=== PATIENT | male | born 1980 | race Caucasian/White ===

== ENCOUNTER 2018-11-09 16:37 | Emergency (ER) | payer SELFPAY ==
--- NOTE | 2018-11-09 17:41 | PDOC ---
Rapid Medical Evaluation Medical Evaluation: 11/09/18 17:38 Pt c/o: pain to midsuprapubic area x 2 days, pain causes him to urinate , no hematuria, no other complaints, no etoh Pt on brief exam: mid suprapubic pain Patient ordered for: ua, ucx Pt to proceed to the ED Discharge Disposition - Diagnosis Suprapubic abdominal pain - Referrals - Patient Instructions - Post Discharge Activity
[2018-11-09 17:43] VITALS: BP 131/82; PULSE 67; TEMP 98.1; BMI 26.6
[2018-11-09 18:20] LABS: URINE APPEARANCE CLEAR; URINE BILIRUBIN NEGATIVE (<2.0 mg/dL); URINE COLOR COLORLESS; URINE GLUCOSE (UA) NEGATIVE (NEGATIVE); URINE KETONE NEGATIVE (NEGATIVE); URINE LEUK ESTERASE NEGATIVE (NEGATIVE); URINE NITRITE NEGATIVE (NEGATIVE); URINE PROTEIN NEGATIVE (NEGATIVE); URINE UROBILINOGEN NEGATIVE mg/dL (0.2-1.0)
[2018-11-09] MEDS ORDERED: SODIUM CHLORIDE 0.9% 500 ML INFUS.BAG IV ONE (19:34)
[2018-11-09] MEDS ORDERED: ACETAMINOPHEN 1000 MG/100 ML VIAL (NON FORMULARY) IVPB ONE (19:35)
--- NOTE | 2018-11-09 19:38 | PDOC ---
Attending Attestation - HPI HPI: 11/09/18 20:31 The patient is a 38-year-old male with no reported past medical history presents to the emergency department with abdominal pain. The patient presents with 1 day and half of suprapubic pain associated with radiating pain to the lower back and testicles since earlier today. The patient reports since the presentation, hes been having associated symptoms of urinary frequency. The patient reports his last intercourse was without a condom. Denies hx of DM, kidney stones, FH of kidney stones, recent heavy lifting, recent surgery, dysuria, hematuria, taking medication for the pain, hx of constipation. Denies penile discharge or bleeding. Denies fever, chills, diarrhea, constipation, leg pain. Denies prior similar pain. Allergies NKDA Social history: The patient reports he is monogamous with his partner. Surgical history: None reported PCP: None reported. - Physicial Exam PE: 11/09/18 20:41 GENERAL: Awake, alert, and fully oriented, in no acute distress HEAD: No signs of trauma EYES: PERRLA, EOMI, sclera anicteric, conjunctiva clear ENT: Auricles normal inspection, hearing grossly normal, nares patent, oropharynx clear without exudates. Moist mucosa NECK: Normal ROM, supple, no lymphadenopathy, JVD, or masses LUNGS: Breath sounds equal, clear to auscultation bilaterally. No wheezes, and no crackles HEART: Regular rate and rhythm, normal S1 and S2, no murmurs, rubs or gallops ABDOMEN: +suprapubic tenderness. No flank pain. No inguinal hernia. Soft, no rebound. No masses exam: L. testicular pain, no rashes. Cremasteric reflex equal bilaterally. EXTREMITIES: Normal range of motion, no edema. No clubbing or cyanosis. No cords, erythema, or tenderness NEUROLOGICAL: Cranial nerves II through XII grossly intact. Normal speech, normal gait SKIN: No rashes or shingles. Warm, Dry, normal turgor, no rashes or lesions noted. - Medical Decision Making 11/09/18 19:41 Documentation prepared by Jeanine Burton, acting as medical office representative for Haylie Bauer MD. <Jeanine Burton - Last Filed: 11/09/18 20:41> - Resident Resident Name: Aurora Akers - ED Attending Attestation I have performed the following: I have examined & evaluated the patient, The case was reviewed & discussed with the resident, I agree w/resident's findings & plan - Medical Decision Making 11/09/18 20:18 Pt comes with a day of dysuria and urinary frequency that is radiating up the left flank.Left testcile pain, but nothing evident on exam of testicle. No flank pain with palpation or percussion. Pt has no fever and no chills. He had a sexual encounter with no condoms 3 days ago. States that he has only 1 partner. Pt has no discharge and he has no inguinal hernia defect. No rashes in the perineum or on the abd or trunk. 11/09/18 20:21 CBC normal UA normal No blood or mucus or WBC or bacteria in the urine. 11/09/18 20:53 chem normal GC/chlamydia swab is pending 11/09/18 21:09 Pt has epididymitis on the left; he will be treated with zithromax 1g as well as ceftriaxone 250mgIM <Haylie Bauer - Last Filed: 11/09/18 21:10>
--- NOTE | 2018-11-09 19:41 | PDOC ---
History of Present Illness - General Chief Complaint: Pain Stated Complaint: ABD PAIN Time Seen by Provider: 11/09/18 17:38 History Source: Patient Exam Limitations: No Limitations - History of Present Illness Initial Comments: 11/09/18 19:36 [id number] without PMH who has no PCP and has been estranged from the medical system , who p/w about 1.5 days of suprapubic pain radiating diffusely to lower abdomen , lower back, and to his testicles (equally on both sides). He denies any f/c/n/ v/d/c, penile lesions or discharge, testicular swelling, scrotal skin changes, other skin changes/rash, black/bloody stool, burning on urination, hematuria, midline back pain, leg pain, or other symptoms. Did not try taking any medication at home. Past History - Past Medical History Allergies/Adverse Reactions: Allergies Allergy/AdvReac Type Severity Reaction Status Date / Time No Known Allergies Allergy Verified 11/09/18 17:40 Home Medications: Ambulatory Orders Doxycycline Hyclate 100 mg PO BID #19 tablet 11/09/18 COPD: No - Suicide/Smoking/Psychosocial Hx Smoking History: Never smoked Hx Alcohol Use: No Drug/Substance Use Hx: No Review of Systems - Review of Systems Able to Perform ROS?: Yes Comments:: GEN: no fever, chills, malaise, generalized weakness, or weight change HEENT: no ear pain, sore throat, vision change, or eye pain CV: no chest pain, palpitations, lightheadedness, syncope, or edema RESP: no cough, wheezing, or SOB GI: lower abdominal pain, no nausea, vomiting, diarrhea, constipation, or white/ black/bloody stool : urinary frequency, testicular pain, no dysuria, hematuria, incontinence, retention, bleeding, or discharge MSK: low back pain, otherwise no additional neck/back pain, muscle weakness/pain , or joint swelling/pain NEURO: no headache, seizure, vertigo, numbness, tingling, or focal weakness PSYCH: no substance use, no behavior change SKIN: no jaundice, no rash ROS otherwise negative except as noted in HPI *Physical Exam - Vital Signs Last Vital Signs Temp Pulse Resp BP Pulse Ox 98.1 F 67 18 131/82 99 11/09/18 17:40 11/09/18 17:40 11/09/18 17:40 11/09/18 17:40 11/09/18 17:40 - Physical Exam Comments: 11/09/18 19:40 GENERAL: well-appearing, A/Ox4, no distress, answers questions appropriately, pleasant and German and B[place]ian speaking HEENT: PERRLA, EOMI, moist mucous membranes NECK/BACK: no midline ttp, no spinal stepoff or deformity, no hematoma, full ROM , neck supple CARDIOVASCULAR: regular rate/rhythm, normal S1S2, no MGR, strong peripheral pulses, capillary refill <2 seconds, extremities wwp, no edema LUNGS/RESPIRATORY: no respiratory distress, CTAB GI/ABDOMEN: symmetric [id number], normoactive BS, soft, mild suprapubic ttp, no midline pulsatile masses : no CVA tenderness EXTREMITIES: no muscle atrophy, no acute deformity SKIN: warm and dry, no pallor, no jaundice, no rash, no bruising, no skin breakdown, no cuts, no lesions NEUROLOGICAL: GCS 15, CN II-XII grossly intact, 5/5 strength proximally and distally, no facial droop Moderate Sedation - Procedure Monitoring Vital Signs: Procedure Monitoring Vital Signs Temperature 98.1 F 11/09/18 17:40 Pulse Rate 67 11/09/18 17:40 Respiratory Rate 18 11/09/18 17:40 Blood Pressure 131/82 11/09/18 17:40 O2 Sat by Pulse Oximetry (%) 99 11/09/18 17:40 ED Treatment Course - LABORATORY CBC & Chemistry Diagram: 11/09/18 19:54 11/09/18 19:54 - ADDITIONAL ORDERS Additional order review: Laboratory Results 11/09/18 18:00 Urine Color Colorless Urine Appearance Clear Urine pH 7.0 Ur Specific [place] 1.006 L Urine Protein Negative Urine Glucose (UA) Negative Urine Ketones Negative Urine Blood Negative Urine Nitrite Negative Urine Bilirubin Negative Urine Urobilinogen Negative Ur Leukocyte Esterase Negative - RADIOLOGY Radiology Studies Ordered: Category Date Time Status KIDNEY / RENAL US [US] Stat Ultrasound 11/09/18 19:34 Ordered SCROTUM AND CONTENTS US [US] Stat Ultrasound 11/09/18 19:34 Ordered Medical Decision Making - Medical Decision Making 11/09/18 19:41 Adult male Pt p/w suprapubic abdominal pain. VS: Exam: As noted in Physical Exam section. DDX IBNLT: hernia, testicular torsion, epididymitis, orchitis, urethritis, soft tissue or scrotal abscess (e.g. 2/2 folliculitis), cellulitis, Fourniers gangrene, UTI/pyelonephritis, renal colic, malignancy, cholecystitis, pancreatitis, gastritis, PUD, appendicitis, diverticulitis wwo abscess or perforation, colitis, SBO, bowel ischemia, bowel perforation, constipation, musculoskeletal, etc. W/U ordered: CBCD CMP Mg Phos Coags UA UCx T&S GC/Chlam/trich NAAT (urethral swab) GC culture, US scrotum and scrotal contents TX ordered: IVF, Ofirmev If UA has WBC and RBC but there is high clinical suspicion for appendicitis, get imaging anyway. Appendicitis can irritate the ureter(s) and cause elevated WBC and RBC in UA. Unlikely hernia as Pt has no inguinal hernia on palpation with cough, no outwardly palpable hernia. Unlikely testicular torsion as Pt has no high-riding testicle, no tenderness, no testicular/scrotal swelling. Unlikely epididymitis or orchitis as Pt has no testicular or epididymis tenderness. Unlikely urethritis as Pt denies penile burning on urination, states little concern for STI, no hx reported. Unlikely external abscess as there is no palpable or tender soft tissue mass on exam. Unlikely cellulitis as Pts skin exam is w/o erythema or warmth. Unlikely Fourniers gangrene as there are no skin color changes, Pt reports no h /o immunocompromised. Unlikely UTI/pyelonephritis as Pt has no dysuria, strange colors/smells, no h/o recurrent UTI. Unlikely renal stone as Pt notes no clinical hematuria, has no CVA tenderness. Unlikely malignancy as Pt has no palpable mass, no reported recent B symptoms. Unlikely cholecystitis as no postprandial worsening. Unlikely pancreatitis as Pt denies EtOH use, h/o gallstones, no known hypercalcemia. Unlikely gastritis as Pt denies h/o significant GERD, no overuse of EtOH. Unlikely PUD as Pt does not report relief of pain ~2 hours postprandially or with antacids. Unlikely appendicitis as Pt has no fever, RLQ or umbilical abdominal pain, or anorexia. Unlikely diverticulitis as Pt has no known h/o diverticulosis/diverticulitis. Unlikely colitis as clinically Pts abdomen is not distended/no ascites, no fever, other VS wnl. Unlikely SBO as Pt has been passing stool and gas normally per their baseline. Unlikely mesenteric ischemia as Pt has no known A-fib or coagulopathy, no pain out of proportion. Unlikely bowel perforation as Pt does not appear to have acute abdomen, no peritoneal signs. Labs: Reassessment: Repeat VS: ADMIT The Pts symptoms persist despite ED treatments. The Pt is unsafe for discharge at this time. They require further hospital observation, workup, and treatment. Microblog sent to [facility] for admission. Blank Decision to Admit order is placed per ED protocol. Spoke with admitting team u.s. representative, in agreement Pt to be admitted. Decision to Admit order corrected with admitting team covering attendings name. Decision to Admit order placed to admitting team covering attending. DISCHARGE This patient has gotten significant relief of symptoms while in the ED. On last reassessment, vitals are wnl, pain is reasonably controlled, and exam is benign. Workup is not concerning for emergency-level pathology at this time. This patient is appropriate for discharge with close outpatient follow up. They are comfortable with this plan and will follow up with their primary care provider in 1-3 days. Specific return precautions are discussed and they will come back to the ER if necessary. *DC/Admit/Observation/Transfer Diagnosis at time of Disposition: Epididymitis - Discharge Dispostion Disposition: HOME Condition at time of disposition: Stable Decision to Admit order: No - Prescriptions Prescriptions: Doxycycline Hyclate 100 mg PO BID #19 tablet - Referrals Referrals: [facility] [place] [Provider Group] - Patient Instructions Printed Discharge Instructions: DI for Epididymitis Additional Instructions: You were seen in the ER for lower abdominal pain/groin pain. We did an exam, laboratory work on your blood and urine, sent fluid cultures, and did an ultrasound, and we found inflammation of the vessels next to the left testicle which we believe is due to an infection. The fluid cultures take a few days to result, so please call back for your results at that time (you should receive a call anyway if there are any abnormal findings). Your pain improved with the medications we gave you here in the ER. After our assessment, we believe you are not having a medical emergency and you are safe to go home. 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 Finish the whole course of antibiotic as directed, whether or not you feel better. Do not have sexual intercourse for two weeks after your symptoms disappear. Your sexual partner needs to have testing for sexually transmitted infection too. Please take [id number] pain relievers like naproxen (aleve) or ibuprofen (motrin) or tylenol. Follow up with your primary care provider(s) in the next 1-3 days. Call their clinic [facility], tell them you were seen in the ER, and tell them you need an appointment. Please come back to the ER at any time, 24 hours a day, for any new or worsening symptoms, like worsening pain, discharge, high fever, or other symptoms. If you are having severe or life threatening symptoms, or symptoms that make it unsafe to drive or have someone drive you, please call 911. - Post Discharge Activity
[2018-11-09] MEDS ORDERED: ACETAMINOPHEN INJECTION 100 ML IVPB ONE (19:58)
[2018-11-09 20:08] LABS: EOS % 4.3 % (0-4.5); HEMOGLOBIN 14.1 GM/dL (11.7-16.9); LYMPH % 39.9 % (8-40); MCH 31.4 pg (25.7-33.7); MEAN CELL VOLUME 87.2 fl (80-96); MEAN PLT VOLUME 8.9 fl (7.5-11.1); MONO % 6.2 % (3.8-10.2); NEUT % 48.6 % (42.8-82.8); PLATELET COUNT 190 K/MM3 (134-434); RBC 4.47 M/mm3 (4.00-5.60); RDW 13.1 % (11.9-15.9); WHITE BLOOD COUNT 8.9 K/mm3 (4.0-10.0)
[2018-11-09 20:28] LABS: ALBUMIN 4.4 g/dl (3.4-5.0); ALK PHOS 81 U/L (45-117); ANION GAP 6 MMOL/L (8-16); BILIRUBIN,TOTAL 0.4 mg/dL (0.2-1); BLOOD UREA NITROGEN 14 mg/dL (7-18); CALCIUM 8.9 mg/dL (8.5-10.1); CHLORIDE 104 mmol/L (98-107); CO2 29 mmol/L (21-32); CREATININE 0.8 mg/dL (0.55-1.3); GLUCOSE,RANDOM 92 mg/dL (74-106); POTASSIUM 4.1 mmol/L (3.5-5.1); SGOT/AST 17 U/L (15-37); SGPT/ALT 46 U/L (13-61); SODIUM 139 mmol/L (136-145); TOT PROT 7.6 g/dl (6.4-8.2)
[2018-11-09] MEDS ORDERED: DOXYCYCLINE HYCLATE 100 MG CAPSULE PO ONE ×2 (21:37→21:55)
[2018-11-09] MEDS ORDERED: cefTRIAXone SODIUM 1 GM VIAL ONE (21:55)
[2018-11-09] MEDS ORDERED: LIDOCAINE HCL 1%, 10 MG/ML (20ML VIAL) ONE (21:56)
== END 2018-11-09 22:10 | disposition home or self-care (01) ==
LOC: JER 16:37
PROC: 3E033NZ Introduction of Analgesics, Hypnotics, Sedatives into Peripheral Vein, Percutaneous Approach (ICD-10-PCS; principal; 2018-11-09)
PROC: 3E02329 Introduction of Other Anti-infective into Muscle, Percutaneous Approach (ICD-10-PCS; 2018-11-09)
DX: N45.1 Epididymitis (principal)
CPT/HCPCS: 36415; 76775-TC; 76870-TC; 80053; 81003; 85025; 87086; 87491; 87591; 99283-25; J0131

== ENCOUNTER 2020-10-19 01:49 | Emergency (ER) | payer OTHER ==
[2020-10-19 02:34] VITALS: BP 127/82; PULSE 66; TEMP 98.7; BMI 26.3
[2020-10-19] MEDS ORDERED: IBUPROFEN 600 MG TABLET (FP) PO ONE ×2 (03:39→04:03)
[2020-10-19] MEDS ORDERED: diphenhydrAMINE HCL 50 MG CAPSULE PO ONE (03:39)
[2020-10-19] MEDS ORDERED: PERMETHRIN 5% TOPICAL CREAM 60 GM TUBE TP ONE (03:45)
[2020-10-19] MEDS ORDERED: diphenhydrAMINE HCL 25 MG CAPSULE (FP) PO ONE (04:03)
== END 2020-10-19 05:57 | disposition home or self-care (01) ==
LOC: JER 01:49
DX: R21 Rash and other nonspecific skin eruption (principal); M54.5 Low back pain
CPT/HCPCS: 99283-25

== ENCOUNTER 2021-07-02 23:26 | Emergency (ER) | payer OTHER ==
[2021-07-02 23:33] VITALS: BP 127/80; PULSE 116; BMI 28.3
[2021-07-03] MEDS ORDERED: LACTATED RINGERS SOLUTION 1000 ML INFUS.BAG IV ONE (00:45)
[2021-07-03] MEDS ORDERED: ACETAMINOPHEN 1000 MG/100 ML VIAL (NON FORMULARY) IVPB ONE (00:45)
[2021-07-03] MEDS ORDERED: ACETAMINOPHEN INJECTION 100 ML IVPB ONE (00:56)
[2021-07-03] MEDS ORDERED: CLINDAMYCIN 900 MG PREMIX IVPB 900 MG/50 ML BAG IVPB ONE ×2 (01:01→01:15)
[2021-07-03 01:14] LABS: BASO % 0.8 % (0-2.0); EOS % 0.1 % (0-4.5); HEMATOCRIT 39.4 % (35.4-49); HEMOGLOBIN 13.5 GM/dL (11.7-16.9); LYMPH % 12.8 % (8-40); MCH 29.3 pg (25.7-33.7); MCHC 34.2 g/dl (32.0-35.9); MEAN CELL VOLUME 85.7 fl (80-96); MEAN PLT VOLUME 8.7 fl (7.5-11.1); MONO % 6.6 % (3.8-10.2); NEUT % 79.7 % (42.8-82.8); PLATELET COUNT 189 10^3/uL (134-434); WHITE BLOOD COUNT 13.7 K/mm3 (4.0-10.0)
[2021-07-03 01:47] LABS: ALBUMIN 4.2 g/dl (3.4-5.0); CALCIUM 8.7 mg/dL (8.5-10.1)
[2021-07-03 01:50] LABS: CREATININE 0.8 mg/dL (0.55-1.3)
[2021-07-03 01:52] LABS: BILIRUBIN,TOTAL 0.9 mg/dL (0.2-1); TOT PROT 7.8 g/dl (6.4-8.2)
[2021-07-03 03:21] VITALS: TEMP 98.5
== END 2021-07-03 04:33 | disposition home or self-care (01) ==
LOC: JER 23:26
PROC: 3E0333Z Introduction of Anti-inflammatory into Peripheral Vein, Percutaneous Approach (ICD-10-PCS; principal; 2021-07-02)
PROC: 3E03329 Introduction of Other Anti-infective into Peripheral Vein, Percutaneous Approach (ICD-10-PCS; 2021-07-02)
DX: K11.20 Sialoadenitis, unspecified (principal); J39.0 Retropharyngeal and parapharyngeal abscess
CPT/HCPCS: 36415; 70491-TC; 80053; 85025; 87804; 99285-25; C9803; J0131; U0003; U0005

== ENCOUNTER 2022-05-14 12:00 | Emergency (ER) | payer OTHER ==
[2022-05-14 12:03] VITALS: BP 128/68; PULSE 83; RESP 19; TEMP 98.1; BMI 28.3
== END 2022-05-14 12:23 | disposition home or self-care (01) ==
LOC: JERFT 12:00
DX: L23.7 Allergic contact dermatitis due to plants, except food (principal)
CPT/HCPCS: 99283-25

== ENCOUNTER 2022-09-19 16:40 | Emergency (ER) | payer OTHER ==
[2022-09-19 16:56] VITALS: RESP 18; BMI 33.4
[2022-09-19] MEDS ORDERED: ASPIRIN 81 MG CHEWABLE TABLETS PO ONE (19:16)
[2022-09-19 20:51] LABS: BASO % 0.5 % (0-2.0); EOS % 0.9 % (0-4.5); HEMATOCRIT 41.6 % (35.4-49); HEMOGLOBIN 14.2 GM/dL (11.7-16.9); LYMPH % 34.8 % (8-40); MCH 29.7 pg (25.7-33.7); MCHC 34.1 g/dl (32.0-35.9); MEAN PLT VOLUME 8.4 fl (7.5-11.1); MONO % 7.4 % (3.8-10.2); NEUT % 56.4 % (42.8-82.8); PLATELET COUNT 335 10^3/uL (134-434); RBC 4.78 M/mm3 (4.00-5.60); RDW 12.7 % (11.9-15.9); WHITE BLOOD COUNT 10.3 K/mm3 (4.0-10.0)
[2022-09-19] MEDS ORDERED: ASPIRIN 81 MG CHEWABLE TABLETS ONE (20:55)
[2022-09-19 20:58] LABS: INR 0.97 (0.83-1.09); PROTHROMBIN TIME (PATIENT) 11.2 SEC (9.7-13.0)
[2022-09-19 21:00] LABS: ACTIVATED PTT 33.7 SECONDS (25.2-36.5)
[2022-09-19 21:19] LABS: BLOOD UREA NITROGEN 19.9 mg/dL (7-18); MAGNESIUM 2.2 mg/dL (1.8-2.4)
[2022-09-19 21:22] LABS: CREATININE 0.9 mg/dL (0.55-1.3)
[2022-09-19 21:23] LABS: BILIRUBIN,TOTAL 0.2 mg/dL (0.2-1); TOT PROT 7.5 g/dl (6.4-8.2)
[2022-09-19 21:26] VITALS: BP 120/80; PULSE 75; TEMP 98
== END 2022-09-20 | disposition home or self-care (01) ==
LOC: JER 16:40
DX: S20.219A Contusion of unspecified front wall of thorax, initial encounter (principal); V49.9XXA Car occupant (driver) (passenger) injured in unspecified traffic accident, initial encounter
CPT/HCPCS: 36415; 71046-TC-FY; 71250-TC; 80053; 83735; 84484; 85025; 85610; 85730; 93005; 93010; 99285-25

== ENCOUNTER 2023-04-19 19:15 | Emergency (ER) | payer OTHER ==
[2023-04-19 19:19] VITALS: BP 124/81; PULSE 89; RESP 16; TEMP 98.5; BMI 34.0
[2023-04-19] MEDS ORDERED: METHOCARBAMOL 500 MG TABLET PO ONE (23:12)
[2023-04-19] MEDS ORDERED: IBUPROFEN 600 MG TABLET (FP) PO ONE ×2 (23:12→23:24)
[2023-04-19] MEDS ORDERED: LIDOCAINE 5% TOPICAL PATCH TP ONE (23:12)
[2023-04-19] MEDS ORDERED: LIDOCAINE 5% TOPICAL PATCH ONE (23:23)
[2023-04-19] MEDS ORDERED: METHOCARBAMOL 500 MG TABLET ONE (23:24)
== END 2023-04-20 00:40 | disposition home or self-care (01) ==
LOC: JER 19:15 → JERFT 19:15 → JER 04-20 00:40
DX: M54.2 Cervicalgia (principal); M54.9 Dorsalgia, unspecified; V89.1XXD Person injured in unspecified nonmotor-vehicle accident, nontraffic, subsequent encounter; Y93.I9 Activity, other involving external motion; Y92.410 Unspecified street and highway as the place of occurrence of the external cause
CPT/HCPCS: 99283-25